=== PATIENT | male | born 1995 | race Caucasian/White ===

== ENCOUNTER 2021-07-11 13:38 | Emergency (ER) | payer OTHER ==
--- OUTSIDE RECORDS SUMMARY | 2021-07-11 13:41 | XMS REPORT | Continuity of Care Document ---
:1995 Author Organization [facility] t Address [address] [place] [address] [address]. [address] [place] [address] Care Team Providers Name Role Phone Only, Test Attending Clinician Unavailable Marsha Walsh MD Attending Clinician Marsha WALSH Attending Clinician Unavailable Pob1, Care Clinic Attending Clinician Unavailable Rebekah FIBROUS PLASTERER Attending Clinician REBEKAH Attending Clinician Unavailable Payers Payer Name Policy Type Policy Number Effective Date Expiration Date S ource Problems Condition Condition Condition Status Onset Resolution Last Treating Co mments Source Name Details Category Date Date Treatment Clinician Date No known No known Disease Unive rs active active ity of problems problems [facility] Allergies, Adverse Reactions, Alerts Allergy Allergy Status Severity Reaction(s) Onset Inactive Treating Comm ents Source Name Type Date Date Clinician NO KNOWN Drug Active Univers ALLERGIE Class ity of S [facility] Social History Social Habit Start Date Stop Date Quantity Comments Source Sex Assigned At Universit y of [facility] Exposure to Not sure [facility] SARS-CoV-2 (event) [facility] Tobacco use and 2019-12-01 2019-12-01 Never used Universit y of exposure 00:00:00 00:00:00 [facility] Cigarettes smoked 2019-12-01 2019-12-01 Univers ity of current (pack per 00:00:00 00:00:00 ) - Reported Branch Cigarette 2019-12-01 2019-12-01 University of pack-years 00:00:00 00:00:00 [facility] History of tobacco 2019-08-18 Cigarette Smoker University of use 00:00:00 [facility] Smoking Status Start Date Stop Date Source Former smoker 2019-12-01 00:00:00 2019-12-01 00:00:00 Universi ty [facility] Medications Ordered Filled Start Stop Current Ordering Indication Dosage Frequency Signature Comments Components Source Medication Medication Date Date Medication? Clinician (SIG) Name Name No known No Univers medications [facility] No known No Univers medications [facility] Vital Signs Vital Name Observation Time Observation Value Comments Source Systolic blood 2019-12-01 18:09:00 121 mm[Hg] Univer sity of pressure [facility] Diastolic blood 2019-12-01 18:09:00 73 mm[Hg] Unive rsity of pressure [facility] Heart rate 2019-12-01 18:09:00 84 /min [facility] Body temperature 2019-12-01 18:09:00 37.44 [facility]li [facility] Respiratory rate 2019-12-01 18:09:00 16 /min [facility] Body height 2019-12-01 18:09:00 188 cm [facility] Body weight 2019-12-01 18:09:00 86.183 kg [facility] BMI 2019-12-01 18:09:00 24.39 kg/m2 [facility] Oxygen saturation in 2019-12-01 18:09:00 99 /min [facility] Arterial blood by [facility] Pulse oximetry Delta Procedures Procedure Date / Time Performed Performing Clinician Sourc e POCT GRP A STREP 2019-12-01 00:00:00 Tg Riggs [facility] ([facility] Encounters Start End Encounter Admission Attending Care Care Encounter Source Date/Time Date/Time Type Type Clinicians Facility Department ID 2020-07-02 2020-07-02 Laboratory Only, Web Test [facility] [id number] Univers 18:18:39 18:33:39 Only Victoriano Walsh [facility] [id number] ity of Specialty [id number] Te [facility] Care - [id number] [facility] [address] 2020-07-02 2020-07-02 Outpatient [facility] [id number] Univers 18:30:00 18:30:00 [id number] [facility] 2020-07-02 2020-07-02 Outpatient Meagan WALSH [facility] [id number] Univers 18:30:00 18:30:00 [facility] 2019-12-01 2019-12-01 Urgent Pob1, Acute Care Clinic [facility] [id number]. [id number] Univers 12:59:40 13:19:40 [facility] [id number] [facility] [id number] Sukhdeep as Naimamoy [phone] [address] Office [address] 2019-12-01 2019-12-01 [facility] [id number] [facility] 13:00:00 13:00:00 [facility] Results Test Description Test Time Test Comments Results Result Comments Source POCT GRP A STREP (MOLECULAR) 2019-12-01 18:29:00 Test Item Value Reference Range Interpretation Comme nts POCT GP A STREP (test code = 56808-8) negative Negative - Negat tereza [facility]
[2021-07-11 15:12] LABS: Absolute Lymphocytes (CBC) 1.4 K/uL (0.7-4.9); Hematocrit 43.7 % (39.6-49.0); Lymphocytes % 13.4 % (15.3-44.8); MPV 8.4 fL (7.6-11.3); RBC Red Blood Cell Count 4.77 M/uL (4.33-5.43)
[2021-07-11 15:15] LABS: Protime INR 0.99
--- NOTE | 2021-07-11 15:29 | RAD REPORT ---
EXAM DESCRIPTION: RAD - Chest Single View - 07/11/2021 3:07 pm CLINICAL HISTORY: SOB COMPARISON: No comparisons FINDINGS: Lines: None. Lungs: No evidence of edema or pneumonia. Pleural: No significant pleural effusions or pneumothorax. Cardiac: The heart size is within normal limits. Bones: No acute fractures. Other: IMPRESSION: No acute cardiopulmonary disease.
[2021-07-11 15:32] LABS: ALT/SGPT 39 U/L (12-78); AST/SGOT 8 U/L (15-37); Alkaline Phosphatase 65 U/L (45-117); BUN Blood Urea Nitrogen 12 mg/dL (7-18); Bicarbonate 26 mmol/L (21-32); Bilirubin Direct 0.1 mg/dL (0-0.2); Bilirubin Total 0.4 mg/dL (0.2-1.0); Glucose Level 105 mg/dL (74-106); Magnesium 2.2 mg/dL (1.8-2.4); NT PRO-BNP 118 pg/mL (<125); Potassium 3.7 mmol/L (3.5-5.1); Protein, Total 7.7 g/dL (6.4-8.2); Sodium Level 139 mmol/L (136-145)
[2021-07-11 15:55] LABS: SARS-COV-2 RT PCR NEGATIVE (NEGATIVE)
--- NOTE | 2021-07-11 17:15 | RAD REPORT ---
EXAM DESCRIPTION: CT - Chest For Pe Angio - 07/11/2021 5:01 pm CLINICAL HISTORY: SOB COMPARISON: No comparisons FINDINGS: Chest Wall: No suspicious thyroid nodules or pathologic lymphadenopathy. Lungs: No acute abnormality. Pleura: No significant effusions or pneumothorax. Mediastinum/jean carlos: No pathologic lymphadenopathy. Pulmonary arteries/Aorta: No filling defect identified. No aortic aneurysm. Heart: No significant pericardial effusion. Normal heart size. Upper abdomen: No acute abnormality. Bones: No acute abnormality. All CT scans are performed using dose optimization technique as appropriate and may include automated exposure control or mA/KV adjustment according to patient size. IMPRESSION: Negative for pulmonary embolism. No acute findings.
--- NOTE | 2021-07-11 17:29 | ER ---
Nurse's Notes [facility] Name: Billy Dove Age: 26 yrs Sex: Male : 1995 Arrival Date: 07/11/2021 Time: 13:46 Bed 19 Private MD: Diagnosis: Dyspnea Presentation: 07/11 13:49 Chief complaint: Patient states: tested negative for covid 2 weeks ago continues to ortiz have shortness of breath, weakness, high blond pressure. Coronavirus screen: Vaccine status: Patient reports being unvaccinated. Ebola Screen: Patient denies travel to an Ebola-affected area in the 21 days before illness onset. Initial Sepsis Screen: Does the patient meet any 2 criteria? No. Patient's initial sepsis screen is negative. Does the patient have a suspected source of infection? No. Patient's initial sepsis screen is negative. Risk Assessment: Do you want to hurt yourself or someone else?. Onset of symptoms was June 30, 2021. 13:49 Method Of Arrival: Ambulatory ortiz 13:49 Acuity: DAYANARA 3 ortiz Triage Assessment: 13:50 General: Appears in no apparent distress. uncomfortable, Behavior is calm, cooperative, bp appropriate for age. Pain: Complains of pain in head. EENT: No deficits noted. Neuro: No deficits noted. Cardiovascular: No deficits noted. Respiratory: Reports shortness of breath Onset: The symptoms/episode began/occurred 2 WEEKS, the patient has mild shortness of breath. GI: No signs and/or symptoms were reported involving the gastrointestinal system. : No signs and/or symptoms were reported regarding the genitourinary system. Derm: No signs and/or symptoms reported regarding the dermatologic system. Musculoskeletal: No deficits noted. Historical: - Allergies: 13:52 No Known Allergies; ortiz - Home Meds: 13:52 None [Active]; ortiz - PMHx: 13:52 None; ortiz - PSHx: 13:52 None; ortiz - Immunization history:: Adult Immunizations up to date. - Social history:: Smoking status: Reported history of juuling and/or vaping. Patient denies any tobacco usage or history of. Screenin:00 Abuse screen: Denies threats or abuse. Denies injuries from another. Nutritional bp screening: No deficits noted. Tuberculosis screening: No symptoms or risk factors identified. Fall Risk None identified. Assessment: 13:50 General: SEE TRIAGE NOTE. bp 15:00 Reassessment: No changes from previously documented assessment. Patient and/or family bp updated on plan of care and expected duration. Pain level reassessed. 16:00 Reassessment: ALL CURRENT ORDERS COMPLETE, RESULTS UNREMARKABLE. Cardiovascular: Rhythm bp is sinus rhythm. Respiratory: Airway is patent Respiratory effort is even, unlabored, Breath sounds are clear bilaterally. 17:06 Reassessment: No changes from previously documented assessment. Patient and/or family bp updated on plan of care and expected duration. Pain level reassessed. PT RETURNED FROM CT. 17:38 Reassessment: PT D/C HOME AMBULATORY, DX WITH DYSPNEA. bp Vital Signs: 13:49 BP 146 / 90; Pulse 66; Resp 18; Temp 98.6(T); Pulse Ox 100% on R/A; Weight 81.65 kg; ortiz Height 6 ft. 2 in. (187.96 cm); 14:00 BP 117 / 62; Pulse 63; Resp 16; Pulse Ox 99% ; bp 16:00 BP 116 / 67; Pulse 74; Resp 16; Pulse Ox 100% ; bp 17:00 BP 131 / 70; Pulse 47; Resp 16; Pulse Ox 100% ; bp 13:49 Body Mass Index 23.11 (81.65 kg, 187.96 cm) ortiz ED Course: 13:46 Patient arrived in ED. am2 13:52 Triage completed. ortiz 13:52 Arm band placed on left wrist. ortiz 14:00 Patient has correct armband on for positive identification. Bed in low position. Call bp light in reach. Side rails up X2. 14:35 Lazaro Rizvi, RADHA is Primary Nurse. bp 14:37 Jaspal Lema PA is PHCP. jmm 14:37 Jonah Lara MD is Attending Physician. jmm 15:00 Inserted saline lock: 20 gauge in right forearm, using aseptic technique. Blood bp collected. 15:07 XRAY Chest (1 view) In Process Unspecified. EDMS 15:14 COVID-19/FLU A+B (Document "Date of Onset" if Symptomatic) Sent. bp 17:01 CT Chest For PE Angio In Process Unspecified. EDMS 17:38 No provider procedures requiring assistance completed. IV discontinued, intact, bp bleeding controlled, No redness/swelling at site. Pressure dressing applied. Administered Medications: No medications were administered Outcome: 17:29 Discharge ordered by MD. heller 17:38 Discharged to home ambulatory. bp 17:38 Condition: stable 17:38 Discharge instructions given to patient, Instructed on discharge instructions, follow up and referral plans. Demonstrated understanding of instructions, follow-up care. 17:39 Patient left the ED. bp Signatures: Dispatcher [employer] EDMS Jaspal Lema PA PA jmm Moreno, Amanda am2 Peltier, Brian, RN RN bp Au-StagerEden RN RN ortiz Corrections: (The following items were deleted from the chart) 13:53 13:52 Home Meds: None; ortiz ortiz
--- NOTE | 2021-07-11 17:29 | EDPHYS ---
Physician Documentation [facility] Name: Billy Dove Age: 26 yrs Sex: Male : 1995 Arrival Date: 07/11/2021 Time: 13:46 Bed 19 Private MD: ED Physician Jonah Lara HPI: 07/11 14:39 This 26 yrs old Male presents to ER via Ambulatory with complaints of r/o covid, head jmm tingling, Breathing Difficulty, Weakness, Blood Pressure Problem. 14:39 The patient has shortness of breath at rest. Onset: The symptoms/episode began/occurred jmm gradually, 2 week(s) ago. Duration: The symptoms are continuous, and are steadily getting worse. The patient's shortness of breath is aggravated by nothing, is alleviated by nothing. Associated signs and symptoms: Pertinent positives: chest pain, Pertinent negatives: fever. This is a 26 year old male with no chronic medical conditions that presents to the ED with complaints of shortness of breath, fatigue beginning 2 week ago. Patient states symptoms have progressively worsened. . Historical: - Allergies: 13:52 No Known Allergies; ortiz - Home Meds: 13:52 None [Active]; ortiz - PMHx: 13:52 None; ortiz - PSHx: 13:52 None; ortiz - Immunization history:: Adult Immunizations up to date. - Social history:: Smoking status: Reported history of juuling and/or vaping. Patient denies any tobacco usage or history of. ROS: 14:39 Constitutional: Positive for chills, fatigue. jmm 14:39 Respiratory: Positive for cough, shortness of breath. 14:39 All other systems are negative. Exam: 14:39 Constitutional: This is a well developed, well nourished patient who is awake, alert, jmm and in no acute distress. Head/Face: atraumatic. Eyes: EOMI, no conjunctival erythema appreciated ENT: Moist Mucus Membranes Neck: Trachea midline, Supple Chest/axilla: Normal chest wall appearance and motion. Cardiovascular: Regular rate and rhythm. No edema appreciated Respiratory: Normal respirations, no respiratory distress appreciated Abdomen/GI: Non distended, soft Back: Normal ROM Skin: General appearance color normal MS/ Extremity: Moves all extremities, no obvious deformities appreciated, no edema noted to the lower extremities Neuro: Awake and alert, normal gait Psych: Behavior is normal, Mood is normal, Patient is cooperative and pleasant Vital Signs: 13:49 BP 146 / 90; Pulse 66; Resp 18; Temp 98.6(T); Pulse Ox 100% on R/A; Weight 81.65 kg; ortiz Height 6 ft. 2 in. (187.96 cm); 14:00 BP 117 / 62; Pulse 63; Resp 16; Pulse Ox 99% ; bp 16:00 BP 116 / 67; Pulse 74; Resp 16; Pulse Ox 100% ; bp 17:00 BP 131 / 70; Pulse 47; Resp 16; Pulse Ox 100% ; bp 13:49 Body Mass Index 23.11 (81.65 kg, 187.96 cm) ortiz MDM: 14:44 Patient medically screened. [facility] 17:24 Data reviewed: vital signs, nurses notes. Counseling: I had a detailed discussion with arron the patient and/or guardian regarding: the historical points, exam findings, and any diagnostic results supporting the discharge/admit diagnosis, lab results, radiology results, the need for outpatient follow up, to return to the emergency department if symptoms worsen or persist or if there are any questions or concerns that arise at home. ED course: Patient is alert and non toxic in appearance in the ED. No signs of resp distress. Patient advised to follow up with pcp and otherwise given strict return precautions. Patient understood and agrees with the plan of care. . 07/11 14:39 Order name: COVID-19/FLU A+B (Document "Date of Onset" if Symptomatic); Complete Time: [facility] 16:00 07/11 14:43 Order name: [place] Screen Profile; Complete Time: 15:47 [facility] 07/11 14:43 Order name: Basic Metabolic Panel; Complete Time: 15:34 [facility] 07/11 14:43 Order name: CBC with Diff; Complete Time: 15:25 [facility] 07/11 14:43 Order name: LFT's; Complete Time: 15:34 [facility] 07/11 14:43 Order name: Magnesium; Complete Time: 15:34 [facility] 07/11 14:43 Order name: NT PRO-BNP; Complete Time: 15:34 [facility] 07/11 14:43 Order name: PT-INR; Complete Time: 15:25 [facility] 07/11 14:43 Order name: Troponin HS; Complete Time: 15:34 [facility] 07/11 14:43 Order name: XRAY Chest (1 view); Complete Time: 15:34 [facility] 07/11 14:43 Order name: EKG; Complete Time: 14:44 [facility] 07/11 14:43 Order name: Cardiac monitoring; Complete Time: 15:14 [facility] 07/11 14:43 Order name: EKG - Nurse/Tech; Complete Time: 15:14 [facility] 07/11 16:21 Order name: CT Chest For PE Angio; Complete Time: 17:18 [facility] 07/11 14:43 Order name: IV Saline Lock; Complete Time: 15:14 [facility] 07/11 14:43 Order name: Labs collected and sent; Complete Time: 15:14 [facility] 07/11 14:43 Order name: O2 Per Protocol; Complete Time: 15:14 [facility] 07/11 14:43 Order name: O2 Sat Monitoring; Complete Time: 15:14 [facility] Administered Medications: No medications were administered Disposition: 18:00 Co-signature as Attending Physician, Jonah Lara MD I agree with the assessment and rn plan of care. Attestation: The patient's history, exam findings, diagnostics, and a summary of any interventions or procedures was reviewed in detail with Jaspal QUIÑONEZ. Disposition Summary: 07/11/21 17:29 Discharge Ordered Location: Home [facility] Condition: Stable [facility] Diagnosis - Dyspnea jmm Followup: jmm - With: Private Physician - When: 2 - 3 days - Reason: Recheck today's complaints, Continuance of care, Re-evaluation by your physician Discharge Instructions: - Discharge Summary Sheet jmm - Shortness of Breath, Adult jmm Forms: - Medication Reconciliation Form m - Thank You Letter jmm - Antibiotic Education jmm - Prescription Opioid Use jmm - Work release form eb Signatures: Dispatcher [employer] EDJaspal Martinez PA PA jmm Nieto, Roman, MD MD rn Eden Cantrell RN RN ortiz Corrections: (The following items were deleted from the chart) 13:53 13:52 Home Meds: None; ortiz ortiz
[2021-07-11 23:20] VITALS: TEMP 98.6
[2021-07-11 23:23] VITALS: O2SAT 100
[2021-07-11 23:24] VITALS: BP 131/70
--- NOTE | 2021-07-12 08:04 | EKG ---
Test Date: 2021-07-11 Test Time: 15:12:54 Head Machinist: BP MEASUREMENT RESULTS: Intervals: Rate: 62 ND: 150 QRSD: 106 QT: 408 QTc: 414 [place]: P: 79 ND: 150 QRS: 82 T: 54 INTERPRETIVE STATEMENTS: Normal sinus rhythm T wave abnormality, consider anterior ischemia Abnormal ECG Compared to ECG 10/02/2008 15:33:23 T-wave abnormality now present Possible ischemia now present Sinus bradycardia no longer present Electronically Signed On 07-12-21 08:02:45 SKYLIGHTS ASSEMBLER by Adolfo Del Valle
== END 2021-07-11 17:39 | disposition home or self-care (01) ==
LOC: ER 13:38
DX: R06.00 Dyspnea, unspecified (principal); Z20.822 Contact with and (suspected) exposure to COVID-19
CPT/HCPCS: 93005; 85025; 80048; 36415; 83735; 86308; 85610; 80076; 84484; 83880; 0240U; 71275; 71045; 99284; Q9967

== ENCOUNTER 2021-07-12 22:31 | Emergency (ER) | payer OTHER ==
--- OUTSIDE RECORDS SUMMARY | 2021-07-12 22:35 | XMS REPORT | Continuity of Care Document ---
:1995 Author Organization [facility] t Address [address] [place] [address] [address]. [address] [place] [address] Care Team Providers Name Role Phone Only, Test Attending Clinician Unavailable Marsha Walsh MD Attending Clinician Marsha WALSH Attending Clinician Unavailable Pob1, Care Clinic Attending Clinician Unavailable Rebekah GAMBLING SUPERVISOR Attending Clinician REBEKAH Attending Clinician Unavailable Payers Payer Name Policy Type Policy Number Effective Date Expiration Date S ource Problems Condition Condition Condition Status Onset Resolution Last Treating Co mments Source Name Details Category Date Date Treatment Clinician Date No known No known Disease Unive rs active active ity of problems problems [facility] Allergies, Adverse Reactions, Alerts Allergy Allergy Status Severity Reaction(s) Onset Inactive Treating Comm ents Source Name Type Date Date Clinician NO KNOWN Drug Active Univers ALLERGIE Class ity of S [facility] Social History Social Habit Start Date Stop Date Quantity Comments Source Sex Assigned At Universit y of [facility] Exposure to Not sure [facility] SARS-CoV-2 (event) [facility] Tobacco use and 2019-12-01 2019-12-01 Never used Universit y of exposure 00:00:00 00:00:00 [facility] Cigarettes smoked 2019-12-01 2019-12-01 Univers ity of current (pack per 00:00:00 00:00:00 ) - Reported Branch Cigarette 2019-12-01 2019-12-01 University of pack-years 00:00:00 00:00:00 [facility] History of tobacco 2019-08-18 Cigarette Smoker University of use 00:00:00 [facility] Smoking Status Start Date Stop Date Source Former smoker 2019-12-01 00:00:00 2019-12-01 [facility]00 [facility] Medications Ordered Filled Start Stop Current Ordering Indication Dosage Frequency Signature Comments Components Source Medication Medication Date Date Medication? Clinician (SIG) Name Name No known No Univers medications [facility] No known No Univers medications [facility] Vital Signs Vital Name Observation Time Observation Value Comments Source Systolic blood 2019-12-01 18:09:00 121 mm[Hg] Univer sity of [facility] Diastolic blood 2019-12-01 18:09:00 73 mm[Hg] Unive rsity of [facility] Heart rate 2019-12-01 18:09:00 84 /min [facility] Body temperature 2019-12-01 18:09:00 37.44 Yareli [facility] Respiratory rate 2019-12-01 18:09:00 16 /min [facility] Body height 2019-12-01 18:09:00 188 cm [facility] Body weight 2019-12-01 18:09:00 86.183 kg [facility] BMI 2019-12-01 18:09:00 24.39 kg/m2 [facility] Oxygen saturation in 2019-12-01 18:09:00 99 /min [facility] Arterial blood by [facility] Pulse oximetry [place] Procedures Procedure Date / Time Performed Performing Clinician Sourc e POCT GRP A STREP 2019-12-01 00:00:00 Tg [facility] (MOLECULAR) [facility] Encounters Start End Encounter Admission Attending Care Care Encounter Source Date/Time Date/Time Type Type Clinicians Facility Department ID 2020-07-02 2020-07-02 Laboratory Only, Web Test [facility] [id number] Univers 18:18:39 18:33:39 Only Victoriano Walsh [facility] [id number] ity of Specialty [id number] [facility] Care [id number] [place] [address] [address] 2020-07-02 2020-07-02 Outpatient [facility] [id number] Univers 18:30:00 18:30:00 [id number] [facility] 2020-07-02 2020-07-02 Outpatient Meagan WALSH [facility] [id number] Univers 18:30:00 18:30:00 [facility] 2019-12-01 2019-12-01 Urgent Pob1, Acute Care Clinic [facility] [id number]. [id number] Univers 12:59:40 13:19:40 [facility] [id number] [facility] [id number] Sukhdeep as Professio [phone] Wi dical [address] Office [address] 2019-12-01 2019-12-01 [facility] [id number] [facility] 13:00:00 13:00:00 [facility] Results Test Description Test Time Test Comments Results Result Comments Source POCT GRP A STREP (MOLECULAR) 2019-12-01 18:29:00 Test Item Value Reference Range Interpretation Comme nts POCT GP A STREP (test code = 83853-4) negative Negative - Negat tereza [facility]
[2021-07-12] MEDS ORDERED: KETOROLAC 30 MG/ML INJ ONE (23:32)
[2021-07-12] MEDS ORDERED: ALBUTEROL 2.5 MG/3 ML NEB SOL ONE (23:32)
[2021-07-12] MEDS ORDERED: dexAMETHasone 10 MG/ML VIAL ONE (23:32)
[2021-07-13 00:40] LABS: Urine Blood Negative (Negative); Urine Glucose Negative (Negative); Urine Protein Negative (Negative); Urine Specific Gravity 1.025 (1.005-1.030)
[2021-07-13 01:01] LABS: Barbiturates NEGATIVE (NEGATIVE); Benzodiazepines NEGATIVE (NEGATIVE); Cocaine NEGATIVE (NEGATIVE); METHAMPHETAM NEGATIVE (NEGATIVE); Methadone NEGATIVE (NEGATIVE); Opiates NEGATIVE (NEGATIVE); Phencyclidine NEGATIVE (NEGATIVE); THC Cannibis NEGATIVE (NEGATIVE)
--- NOTE | 2021-07-13 01:57 | EDPHYS ---
Physician Documentation [facility] Name: Billy Dove Age: 26 yrs Sex: Male : 1995 Arrival Date: 07/12/2021 Time: 22:33 Bed 14 Private MD: ED Physician Michi Gil HPI: 07/12 23:19 This 26 yrs old Male presents to ER via Ambulatory with complaints of Palpitations, pm1 Breathing Difficulty, Pain All Over, Dizziness. 23:19 The patient presents with a history of palpitations, shortness of breath, body aches. pm1 23:19 Onset: The symptoms/episode began/occurred 2 week(s) ago. Modifying factors: The pm1 symptoms are aggravated by lying down, The symptoms are alleviated by nothing. Associated signs and symptoms: Pertinent negatives: chest pain, fever. Severity of symptoms: in the emergency department the symptoms are worse. The patient has been recently seen at the [facility], yesterday, for similar complaints labs were performed, X-rays were performed, CT scan was performed. Historical: - Allergies: 22:42 No Known Allergies; tw5 - Home Meds: 22:42 azithromycin 250 mg Oral tab 1 tab once daily [Active]; tw5 - PMHx: 22:42 None; tw5 - PSHx: 22:42 None; tw5 - Immunization history:: Flu vaccine is not up to date. - Social history:: Smoking status: Patient denies any tobacco usage or history of. ROS: 23:19 Abdomen/GI: Negative for abdominal pain, nausea, vomiting, diarrhea, and constipation, pm1 Back: Negative for injury and pain, MS/Extremity: Negative for injury and deformity, Skin: Negative for injury, rash, and discoloration. 23:19 Constitutional: Positive for body aches. 23:19 Cardiovascular: Positive for palpitations, Negative for chest pain. 23:19 Respiratory: Positive for shortness of breath, Negative for cough. 23:19 Neuro: Positive for dizziness. 23:19 All other systems are negative. Exam: 23:19 Constitutional: This is a well developed, well nourished patient who is awake, alert, pm1 and in no acute distress. Head/Face: Normocephalic, atraumatic. 23:19 Skin: Warm, dry with normal turgor. Normal color with no rashes, no lesions, and no evidence of cellulitis. MS/ Extremity: Pulses equal, no cyanosis. Neurovascular intact. Full, normal range of motion. 23:19 Cardiovascular: Rate: bradycardic, Rhythm: regular, Pulses: no pulse deficits are appreciated, Heart sounds: normal, normal S1and S2. 23:19 Respiratory: Exam negative for acute changes, respiratory distress, shortness of breath, Breath sounds: are clear throughout. 23:19 Abdomen/GI: Exam negative for acute changes, Inspection: abdomen appears normal, Palpation: abdomen is soft and non-tender, in all quadrants. 23:19 Neuro: Exam negative for acute changes, Orientation: is normal, Mentation: is normal, Motor: is normal, moves all fours. 23:19 Psych: Behavior/mood is cooperative, Affect is flat, Oriented to person, place, time. Vital Signs: 22:37 BP 127 / 82; Pulse 64; Resp 18; Temp 98.7(O); Pulse Ox 100% on R/A; Weight 81.65 kg; tw5 Height 6 ft. 2 in. (187.96 cm); Pain 0/10; 07/13 00:20 BP 140 / 63; Pulse 65; Resp 15; Pulse Ox 100% on R/A; ll3 01:30 BP 120 / 65; Pulse 93; Resp 15; Pulse Ox 100% on R/A; ll3 07/12 22:37 Body Mass Index 23.11 (81.65 kg, 187.96 cm) tw5 MDM: 07/12 22:59 Patient medically screened. [facility] 07/13 01:02 Data reviewed: vital signs. Data interpreted: Pulse oximetry: on room air is 100 %. pm1 Interpretation: normal. 01:55 Counseling: I had a detailed discussion with the patient and/or guardian regarding: the pm1 historical points, exam findings, and any diagnostic results supporting the discharge/admit diagnosis, lab results, the need for outpatient follow up, to return to the emergency department if symptoms worsen or persist or if there are any questions or concerns that arise at home, smoking cessation. Vaping cessation. 07/12 23:17 Order name: UDS; Complete Time: 01:02 pm1 07/13 00:40 Order name: Urine Dipstick-Ancillary; Complete Time: 00:57 EDMS 07/12 23:17 Order name: EKG; Complete Time: 23:17 pm1 07/12 23:17 Order name: Urine Dipstick-Ancillary (obtain specimen); Complete Time: 01:06 pm1 07/12 23:17 Order name: EKG - Nurse/Tech; Complete Time: 23:28 pm1 Administered Medications: 07/12 23:54 Drug: Albuterol 5 mg Route: Inhalation; ll3 07/13 00:16 Follow up: Response: No adverse reaction ll3 07/12 23:54 Drug: Decadron (dexamethasone) 10 mg Route: IM; Site: right gluteus; ll3 07/13 00:16 Follow up: Response: No adverse reaction ll3 07/12 23:54 Drug: Ketorolac 60 mg Route: IM; Site: left gluteus; ll3 07/13 00:16 Follow up: Response: No adverse reaction ll3 Disposition: 08:54 Co-signature as Attending Physician, Michi Gil MD I agree with the assessment and cindy plan of care. Disposition Summary: 07/13/21 01:55 Discharge Ordered Location: Home pm1 Problem: new pm1 Symptoms: have improved pm1 Condition: Stable pm1 Diagnosis - Shortness of breath pm1 Followup: pm1 - With: Emergency Department - When: As needed - Reason: Worsening of condition Followup: pm1 - With: Private Physician - When: 2 - 3 days - Reason: Recheck today's complaints, Continuance of care, Re-evaluation by your physician Discharge Instructions: - Discharge Summary Sheet pm1 - Shortness of Breath, Adult pm1 - Smoking Tobacco Information, Adult pm1 Forms: - Medication Reconciliation Form pm1 - Thank You Letter pm1 - Antibiotic Education pm1 - Prescription Opioid Use pm1 Signatures: Dispatcher [employer] Michi Joya MD MD cha Marinas, Patrick, NP COOLING MACHINE OPERATOR pm1 Tamra Valiente tw5 Cora Villegas RN RN ll3
--- NOTE | 2021-07-13 01:57 | ER ---
Nurse's Notes [facility] Name: Billy Dove Age: 26 yrs Sex: Male : 1995 Arrival Date: 07/12/2021 Time: 22:33 Bed 14 Private MD: Diagnosis: Shortness of breath Presentation: 07/12 22:37 Chief complaint: Patient states: "I was here yesterday, I had difficulty breathing for tw5 a couple of weeks. I have tested negative for covid twice. I came in yesterday with weakness and fatigued. They told me to come back today if I felt worse. I have been having real strong heart palpitations and ingestion. I just feel like I cannot breath and I keep getting these hot flashes.". Coronavirus screen: Vaccine status: Patient reports being unvaccinated. Ebola Screen: Patient negative for fever greater than or equal to 101.5 degrees Fahrenheit, and additional compatible Ebola Virus Disease symptoms Patient denies exposure to infectious person. Patient denies travel to an Ebola-affected area in the 21 days before illness onset. Initial Sepsis Screen: Does the patient meet any 2 criteria? No. Patient's initial sepsis screen is negative. Does the patient have a suspected source of infection? No. Patient's initial sepsis screen is negative. Risk Assessment: Do you want to hurt yourself or someone else? Patient reports no desire to harm self or others. Onset of symptoms was July 10, 2021. 22:37 Method Of Arrival: Ambulatory tw5 22:37 Acuity: DAYANARA 3 tw5 22:43 Chief complaint: "I also just dont feel, 'here'. I was driving over here and I didn't tw5 recognize some of the stuff.". Triage Assessment: 22:42 General: Appears in no apparent distress. Behavior is quiet. Pain: Denies pain. tw5 Respiratory: Reports shortness of breath at rest Onset: The symptoms/episode began/occurred at an unknown time. the patient has mild shortness of breath. Historical: - Allergies: 22:42 No Known Allergies; tw5 - Home Meds: 22:42 azithromycin 250 mg Oral tab 1 tab once daily [Active]; tw5 - PMHx: 22:42 None; tw5 - PSHx: 22:42 None; tw5 - Immunization history:: Flu vaccine is not up to date. - Social history:: Smoking status: Patient denies any tobacco usage or history of. Screenin:42 Abuse screen: Denies threats or abuse. Denies injuries from another. Nutritional tw5 screening: No deficits noted. Tuberculosis screening: No symptoms or risk factors identified. Fall Risk None identified. Assessment: 22:56 General: Appears in no apparent distress. uncomfortable, Behavior is calm, cooperative. ll3 General: Behavior is flat. Pain: Complains of pain in chest Pain radiates to left arm. Neuro: Level of Consciousness is awake, alert, obeys commands, Oriented to person, place, time, situation. Cardiovascular: Rhythm is sinus rhythm. Respiratory: Airway is patent Respiratory effort is even, unlabored, Respiratory pattern is regular, symmetrical, Breath sounds are clear bilaterally. Derm: Skin is pink, warm \\T\\ dry. 07/13 00:05 Reassessment: Patient appears in no apparent distress at this time. No changes from ll3 previously documented assessment. Patient and/or family updated on plan of care and expected duration. Pain level reassessed. Patient is alert, oriented x 3, equal unlabored respirations, skin warm/dry/pink. 01:30 Reassessment: Patient appears in no apparent distress at this time. No changes from ll3 previously documented assessment. Patient and/or family updated on plan of care and expected duration. Pain level reassessed. Patient is alert, oriented x 3, equal unlabored respirations, skin warm/dry/pink. Vital Signs: 07/12 22:37 BP 127 / 82; Pulse 64; Resp 18; Temp 98.7(O); Pulse Ox 100% on R/A; Weight 81.65 kg; tw5 Height 6 ft. 2 in. (187.96 cm); Pain 0/10; 07/13 00:20 BP 140 / 63; Pulse 65; Resp 15; Pulse Ox 100% on R/A; ll3 01:30 BP 120 / 65; Pulse 93; Resp 15; Pulse Ox 100% on R/A; ll3 07/12 22:37 Body Mass Index 23.11 (81.65 kg, 187.96 cm) tw5 ED Course: 07/12 22:33 Patient arrived in ED. kc5 22:39 Triage completed. tw5 22:42 Arm band placed on right wrist. tw5 22:57 Cora Villegas, RN is Primary Nurse. ll3 22:58 Terence Anderson NP is PHCP. pm1 22:58 Michi Gil MD is Attending Physician. pm1 07/13 00:21 No provider procedures requiring assistance completed. Urine collected: EKG done, by ED ll3 staff, reviewed by Terence Anderson NP. Initial Neb Treatment Given as ordered Patient was instructed and evaluated on procedure Patient tolerated procedure well without adverse effect. 00:22 Patient has correct armband on for positive identification. Placed in gown. Bed in low ll3 position. Call light in reach. Side rails up X 1. 02:15 Patient did not have IV access during this emergency room visit. ll3 Administered Medications: 07/12 23:54 Drug: Albuterol 5 mg Route: Inhalation; 3 07/13 00:16 Follow up: Response: No adverse reaction 3 07/12 23:54 Drug: Decadron (dexamethasone) 10 mg Route: IM; Site: right gluteus; 3 07/13 00:16 Follow up: Response: No adverse reaction 3 07/12 23:54 Drug: Ketorolac 60 mg Route: IM; Site: left gluteus; 3 07/13 00:16 Follow up: Response: No adverse reaction 3 Outcome: 01:55 Discharge ordered by . pm1 02:15 Discharged to home ambulatory. ll3 02:15 Condition: stable 02:15 Discharge instructions given to patient, Instructed on discharge instructions, follow up and referral plans. Demonstrated understanding of instructions, follow-up care. 02:16 Patient left the ED. ll3 Signatures: Terence Anderson NP CHECKER pm1 Tamra Valiente tw5 Cora Villegas RN RN 3 Trina Ramsay kc5
[2021-07-13 05:14] VITALS: TEMP 98.7; O2SAT 100
[2021-07-13 05:17] VITALS: BP 120/65
--- NOTE | 2021-07-13 08:23 | EKG ---
Test Date: 2021-07-12 Test Time: 23:27:26 Black Topper: [place] MEASUREMENT RESULTS: Intervals: Rate: 54 MT: 162 QRSD: 106 QT: 434 QTc: 411 [place]: P: 70 MT: 162 QRS: 85 T: 72 INTERPRETIVE STATEMENTS: Sinus bradycardia with marked sinus arrhythmia Otherwise normal ECG Compared to ECG 07/11/2021 15:12:54 Sinus rhythm no longer present T-wave abnormality no longer present Possible ischemia no longer present Electronically Signed On 07-13-21 08:22:19 HOUSEHOLD COOK by Adolfo Del Valle
== END 2021-07-13 02:16 | disposition home or self-care (01) ==
LOC: ER 22:31
DX: R06.02 Shortness of breath (principal); R00.2 Palpitations
CPT/HCPCS: 93005; 81003; 80307; J1100